=== PATIENT | female | born 1995 | race African-American/Black ===

== ENCOUNTER 2016-09-02 16:44 | Emergency (ER) | payer OTHER ==
[~2016-09-02] VITALS: Ht 152.4 cm; Wt 45.0 kg
[2016-09-02 16:46] VITALS: BP 114/61; PULSE 92; RESP 12; TEMP 98.1; O2SAT 98
[2016-09-02 17:52] LABS: BLOOD, URINE NEG (NEG); COMMENT (UR) CULT NOT INDICATED; CULTURE IF INDICATED CULT NOT INDICATED; GLUCOSE,URINE NEG (NEG); KETONE, URINE 40 mg/dL (NEG); MUCUS URINE MOD /lpf (OCC); NITRITE,URINE NEG (NEG); PH, URINE 5.5 (5.0-8.5); SQUAMOUS EPITHELIAL CELL URINE 3 /hpf (0-5); URINE COLOR YELLOW (YELLW/STRAW)
[2016-09-02 22:00] VITALS: BP 104/58; PULSE 70; RESP 16; O2SAT 99
[2016-09-02] MEDS ORDERED: NITROFURANTOIN MONOHYD MACROCR 100 MG CAP PO ONE (22:15)
[2016-09-02] MEDS ORDERED: ONDANSETRON HCL 4 MG/2 ML VIAL IV PUSH ONE (22:15)
[2016-09-02 22:57] LABS: AUTOMATED NEUTROPHIL # 3.1 TH/MM3 (1.8-7.7); BASOPHIL # 0.1 TH/MM3 (0-0.2); BASOPHIL % 1.1 % (0.0-2.0); EOSINOPHIL # 0.1 TH/MM3 (0-0.4); EOSINOPHIL % 1.2 % (0.0-4.0); HEMATOCRIT 36.8 % (35.0-46.0); HEMO FLAGS DIFF FINAL; LYMPH % 45.3 % (9.0-44.0); LYMPHOCYTE # 3.1 TH/MM3 (1.0-4.8); MEAN CELL VOLUME 85.2 FL (80.0-100.0); MONO % 6.8 % (0.0-8.0); NEUT % 45.6 % (16.0-70.0); PLATELET COUNT 268 TH/MM3 (150-450); RED BLOOD COUNT 4.32 MIL/MM3 (4.00-5.30); RED CELL DISTRIBUTION WIDTH 13.7 % (11.6-17.2); WHITE BLOOD COUNT 6.8 TH/MM3 (4.0-11.0)
[2016-09-02 23:13] LABS: BICARBONATE 25.4 MEQ/L (21.0-32.0); POTASSIUM 3.9 MEQ/L (3.5-5.1)
[2016-09-02 23:29] LABS: APTT (PATIENT) 27.4 SEC (24.3-30.1); PROTHROMBIN TIME - PATIENT 10.7 SEC (9.8-11.6)
--- NOTE | 2016-09-03 00:08 | PD ---
HPI Chief Complaint: GI Complaint Time Seen by Provider: 22:03 Travel History International Travel<30 days: No Contact w/Intl Traveler<30days: No Traveled to known affect area: No History of Present Illness HPI 20yo F with no PMH presents to the ED with c/o intermittent nausea and vomiting today. Pt found out she was at triage today. VS showed moderate leukocyte. ketone 40. Pt has not vomited for 2 days. Pt given macrobid. LMP early 08/2016. Had intermittent abdominal cramping but currently does not have any abdominal pain. Denies any fever, chest pain, sob, urinary complaints, vaginal bleeding or discharge. PFSH Past Medical History Medical History: Denies Significant Hx Diminished Hearing: No Immunizations Current: Yes ?: Unknown LMP: 08/05/16 : 0 Past Surgical History Surgical History: No Previous Surgery Social History Alcohol Use: No Tobacco Use: No Substance Use: No Allergies-Medications (Allergen,Severity, Reaction): Coded Allergies: No Known Allergies (Unverified , 09/02/16) Reported Meds & Prescriptions Reported Meds & Active Scripts Active No Active Prescriptions or Reported Medications Review of Systems Except as stated in HPI: all other systems reviewed are Neg Physical Exam Narrative GENERAL: 20yo F not in distress/ SKIN: Warm and dry. HEAD: Atraumatic. Normocephalic. EYES: Pupils equal and round. No scleral icterus. No injection or drainage. ENT: No nasal bleeding or discharge. Mucous membranes pink and moist. NECK: Trachea midline. No JVD. CARDIOVASCULAR: Regular rate and rhythm. No murmur appreciated. RESPIRATORY: No accessory muscle use. Clear to auscultation. Breath sounds equal bilaterally. GASTROINTESTINAL: Abdomen soft, non-tender, nondistended. No rebound tenderness or guarding. PELVIC: Cervical os closed. No CMT or adnexal tenderness bilaterally. MUSCULOSKELETAL: No obvious deformities. No clubbing. No cyanosis. No edema. NEUROLOGICAL: Awake and alert. No obvious cranial nerve deficits. Motor grossly within normal limits. Normal speech. PSYCHIATRIC: Appropriate mood and affect; insight and judgment normal. Data Data Last Documented VS Vital Signs Date Time Temp Pulse Resp B/P Pulse Ox O2 Delivery O2 Flow Rate FiO2 09/02/16 22:00 70 16 104/58 99 Room Air 09/02/16 16:46 98.1 Orders Urinalysis - C+S If Indicated (1/2/17 17:02) Ed Urine Pregnancytest Poc (09/02/16 17:02) Nitrofurantoin Monohyd Macrocr (Macrobid (09/02/16 22:15) Ondansetron Inj (Zofran Inj) (09/02/16 22:15) Complete Blood Count With Diff (09/02/16 22:09) Basic Metabolic Panel (Bmp) (09/02/16 22:09) Bhcg Screen Qualitative (09/02/16 22:09) Prothrombin Time / Inr (Pt) (09/02/16 22:09) Act Partial Throm Time (Ptt) (09/02/16 22:09) Labs Laboratory Tests Test 09/02/16 09/02/16 17:10 22:30 Urine Color YELLOW Urine Turbidity CLEAR Urine pH 5.5 Urine Specific [place] 1.032 Urine Protein TRACE mg/dL Urine Glucose (UA) NEG mg/dL Urine Ketones 40 mg/dL Urine Occult Blood NEG Urine Nitrite NEG Urine Bilirubin NEG Urine Urobilinogen 2.0 MG/DL Urine Leukocyte Esterase MOD Urine RBC LESS THAN 1 /hpf Urine WBC 1 /hpf Urine Squamous Epithelial 3 /hpf Cells Urine Mucus MOD /lpf Microscopic Urinalysis Comment CULT NOT INDICATED White Blood Count 6.8 TH/MM3 Red Blood Count 4.32 MIL/MM3 Hemoglobin 12.5 GM/DL Hematocrit 36.8 % Mean Corpuscular Volume 85.2 FL Mean Corpuscular Hemoglobin 29.0 PG Mean Corpuscular Hemoglobin 34.0 % Concent Red Cell Distribution Width 13.7 % Platelet Count 268 TH/MM3 Mean Platelet Volume 8.6 FL Neutrophils (%) (Auto) 45.6 % Lymphocytes (%) (Auto) 45.3 % Monocytes (%) (Auto) 6.8 % Eosinophils (%) (Auto) 1.2 % Basophils (%) (Auto) 1.1 % Neutrophils # (Auto) 3.1 TH/MM3 Lymphocytes # (Auto) 3.1 TH/MM3 Monocytes # (Auto) 0.5 TH/MM3 Eosinophils # (Auto) 0.1 TH/MM3 Basophils # (Auto) 0.1 TH/MM3 CBC Comment DIFF FINAL Differential Comment Prothrombin Time 10.7 SEC Prothromb Time International 1.0 RATIO Ratio Activated Partial 27.4 SEC Thromboplast Time Sodium Level 137 MEQ/L Potassium Level 3.9 MEQ/L Chloride Level 104 MEQ/L Carbon Dioxide Level 25.4 MEQ/L Anion Gap 8 MEQ/L Blood Urea Nitrogen 12 MG/DL Creatinine 0.70 MG/DL Estimat Glomerular Filtration 130 ML/MIN Rate Random Glucose 87 MG/DL Calcium Level 8.0 MG/DL Beta HCG, Qualitative 199 MIU/ML [facility] Medical Decision Making Medical Screen Exam Complete: Yes Emergency Medical Condition: Yes Differential Diagnosis Hyperemesis gravidarum vs. electrolyte disorder vs. UTI Narrative Course 20yo well appearing F found out she is today. Labs reviewed, no leukocytosis. H/H normal. Creatinine normal. Calcium low at 8.0, will replace orally. bHCG is only 199. Abdominal exam is benign with no tenderness. UA showed moderate leukocyte and given macrobid. Pt also given zofran and tolerating PO. VS stable. Diagnosis Primary Impression: Early stage of Additional Impression: UTI (urinary tract infection) Qualified Code: N39.0 - Urinary tract infection without hematuria, site unspecified Referrals: Katia Singletary MD 2 days Early , UTI, no OBGYN Patient Instructions: General Instructions Departure Forms: Tests/Procedures Additional Instructions: Please follow up with OBGYN as instructed. Please return to the ED immediately if you have abdominal pain, vaginal bleeding, vomiting or any other concerning symptoms. Med/Other Pt SpecificInfo: Prescription(s) given Scripts Ondansetron Odt (Zofran Odt)4 Mg Tab4 Mg SL Q6HR PRN (Nausea/Vomiting) #6 TAB Ref 0 Prov:Citlaly Monaco DO 09/03/16 Nitrofurantoin Monohydrate Macrocrystals (Macrobid)100 Mg [id number] Mg PO BID 7 Days Ref 0 Prov:Citlaly Monaco DO 09/03/16 Disposition: 01 DISCHARGE HOME Condition: Stable Citlaly Monaco DO Sep 03, 2016 00:08
[2016-09-03] MEDS ORDERED: ZOFR4TAB3 SL (00:13)
[2016-09-03] MEDS ORDERED: MACR100C2 PO (00:13)
[2016-09-03] MEDS ORDERED: CALCIUM GLUCONATE 500 MG TAB PO ONE (00:15)
== END 2016-09-03 00:40 | disposition home or self-care (01) ==
LOC: NEPA 16:44
DX: O26.891 Other specified pregnancy related conditions, first trimester (principal); O23.41 Unspecified infection of urinary tract in pregnancy, first trimester; R11.2 Nausea with vomiting, unspecified
CPT/HCPCS: 80048; 81001; 84703; 85025; 85610; 85730; 99284